=== PATIENT | female | born 1980 | race Caucasian/White ===

== ENCOUNTER 2020-09-13 12:46 | Outpatient (RCR) | payer OTHER | END 2020-11-13 | disposition home or self-care (01) | LOC: WSOH | DX: S06.0X0A Concussion without loss of consciousness, initial encounter (principal); S00.93XA Contusion of unspecified part of head, initial encounter; E28.2 Polycystic ovarian syndrome; T78.40XA Allergy, unspecified, initial encounter; Z98.890 Other specified postprocedural states; Z87.891 Personal history of nicotine dependence; Y99.0 Civilian activity done for income or pay ==

== ENCOUNTER → 2024-07-27 | Outpatient (CLI) | payer BC | LOC: MC.RAD 14:24 | DX: Z12.31 Encounter for screening mammogram for malignant neoplasm of breast (principal); N63.10 Unspecified lump in the right breast, unspecified quadrant; N63.20 Unspecified lump in the left breast, unspecified quadrant ==